=== PATIENT | male | born 1935 | race Caucasian/White ===

== ENCOUNTER 2022-03-07 07:27 | Observation (INO) ==
[2022-03-07] MEDS ORDERED: CeFAZolin Syr 2,000MG/20 ML 2,000 MG/20 ML SYRINGE IVPB ONE (07:53)
[2022-03-07] MEDS ORDERED: Ringers Solution, Lactated 1,000 ML IVC SCH (08:00)
[2022-03-07] MEDS ORDERED: *HR* Succinylcholine 200 MG/10 ML VIAL IVP ONE (08:01)
[2022-03-07] MEDS ORDERED: Lidocaine -MPF 2% 2 ML VIAL ONE (08:01)
[2022-03-07] MEDS ORDERED: Ondansetron 4 MG/2 ML VIAL ONE (08:01)
[2022-03-07] MEDS ORDERED: *HR* FentaNYL (PF) 100 MCG/2 ML VIAL ONE ×2 (08:01→10:17)
[2022-03-07] MEDS ORDERED: *HR* Propofol 200 MG/20 ML VIAL IVP ONE (08:01)
[2022-03-07] MEDS ORDERED: Ipratropium Neb 0.5 MG NEBULIZER IH PRN (08:10)
[2022-03-07] MEDS ORDERED: Albuterol 2.5 MG/3 ML NEBULIZER IH PRN (08:10)
[2022-03-07] MEDS ORDERED: Acetaminophen IV 1,000 MG/100 ML BAG IVPB PRN (08:10)
[2022-03-07] MEDS ORDERED: Naloxone 0.4 MG/ML INJ IVP PRN ×3 (08:10→16:11)
[2022-03-07] MEDS ORDERED: *HR* OxyCODONE Immed Rel 5 MG TABLET PO PRN ×3 (08:10→13:41)
[2022-03-07] MEDS ORDERED: *HR* HYDROmorphone PF 0.5 MG/0.5 ML SYRINGE IVP PRN (08:10)
[2022-03-07] MEDS ORDERED: *HR* FentaNYL (PF) 100 MCG/2 ML VIAL IVP PRN (08:10)
[2022-03-07] MEDS ORDERED: *HR* Meperidine 25 MG/ML SYRINGE IVP PRN (08:10)
[2022-03-07] MEDS ORDERED: flumazeniL 0.5 MG/5 ML VIAL IVP PRN (08:10)
[2022-03-07] MEDS ORDERED: Ondansetron 4 MG/2 ML VIAL IVP PRN ×2 (08:10→13:41)
[2022-03-07] MEDS ORDERED: Ropivacaine/PF 0.5% 30 ML VIAL ONE (09:00)
[2022-03-07] MEDS ORDERED: ROPIVACAINE/PF/NS 0.25% 1 EACH SYRINGE INTRAART ONE (09:01)
[2022-03-07] MEDS ORDERED: Tranexamic Acid 1,000 MG/10 ML VIAL ONE (09:22)
[2022-03-07] MEDS ORDERED: Vancomycin 1,000 MG VIAL ONE (09:25)
[2022-03-07] MEDS ORDERED: Albumin Human 5% 25.0 GM/500 ML IV.SOLN ONE (09:41)
[2022-03-07] MEDS ORDERED: TOTAL JOINT MIXTURE (100ML) INTRAART ONE (09:55)
[2022-03-07] MEDS ORDERED: Povidone-Iodine 45 ML, Sodium Chloride IRRigation 1,000 ML IR ONE (09:55)
[2022-03-07] MEDS ORDERED: Acetaminophen IV 1,000 MG/100 ML BAG IVPB ONE (10:20)
[2022-03-07] MEDS ORDERED: Sennosides 8.6 MG TABLET PO PRN (13:41)
[2022-03-07] MEDS ORDERED: MOM Conc 10 ML UD.LIQ PO PRN (13:41)
[2022-03-07] MEDS: Ascorbic Acid 500 MG TABLET PO SCH (16:37)
[2022-03-07 17:12] LABS: Basophils % 0.2 %; Eosinophils % 0.1 %; Hematocrit 38.3 % (37.5-50.1); Hemoglobin 12.2 g/dL (12.9-16.9); Immature Granulocytes % 0.4 % (0-4); Lymphocytes # 1.1 K/mcL (0.6-4.6); Lymphocytes % 8.7 %; Mean Corpuscular HGB Conc 31.9 g/dL (31.6-35.5); Mean Corpuscular Hemoglobin 30.2 pg (28.0-33.3); Mean Corpuscular Volume 94.8 fL (83.0-100.0); Mean Platelet Volume 9.4 fL (9.4-12.4); Monocytes # 0.2 K/mcL (0.0-1.3); Monocytes % 1.5 %; Neutrophils # 11.1 K/mcL (1.6-8.9); Platelet Count 195 K/mcL (140-400); Red Blood Count 4.04 M/mcL (4.19-5.50); Red Cell Distribution Width 13.1 % (11.5-14.5); Segmented Neutrophils % 89.1 %; White Blood Count 12.5 K/mcL (4.3-11.1)
[2022-03-07 17:18] LABS: BUN/Creatinine Ratio 25 (6-26); Blood Urea Nitrogen 28 mg/dL (8-23); Calcium 9.1 mg/dL (8.6-10.3); Carbon Dioxide 24 mEq/L (23-29); Chloride 105 mEq/L (98-107); Glucose 127 mg/dL (70-105); Magnesium 1.6 mg/dL (1.6-2.6); Osmolality,Calculated 291 (280-300); Potassium 4.6 mEq/L (3.5-5.1); Sodium 137 mEq/L (136-145); eGFR For African Americans > 60 (> 60); eGFR For Non-African Americans > 60 (> 60)
[2022-03-07 17:19] LABS: Troponin I < 0.03 ng/mL (< 0.04)
[2022-03-07 17:32] LABS: Thyroid Stimulating Hormone 1.863 mcIU/mL (0.340-5.600)
[2022-03-07 17:35] LABS: INR 1.1; Prothrombin Time 11.8 Seconds (9.4-12.1)
[2022-03-07] MEDS: CeFAZolin 2 GM/100 ML BAG IVPB SCH (17:39)
[2022-03-07] MEDS: Ringers Solution, Lactated 1,000 ML IVC SCH (21:23)
[2022-03-08] MEDS: CeFAZolin 2 GM/100 ML BAG IVPB SCH ×3 (01:10→19:22)
[2022-03-08 04:40] LABS: Basophils % 0.1 %; Hematocrit 37.3 % (37.5-50.1); Hemoglobin 12.4 g/dL (12.9-16.9); Immature Granulocytes % 0.5 % (0-4); Lymphocytes # 1.2 K/mcL (0.6-4.6); Lymphocytes % 9.1 %; Mean Corpuscular HGB Conc 33.2 g/dL (31.6-35.5); Mean Corpuscular Hemoglobin 31.2 pg (28.0-33.3); Mean Platelet Volume 9.8 fL (9.4-12.4); Monocytes # 0.8 K/mcL (0.0-1.3); Monocytes % 5.8 %; Platelet Count 220 K/mcL (140-400); Red Blood Count 3.97 M/mcL (4.19-5.50); Red Cell Distribution Width 13.1 % (11.5-14.5); Segmented Neutrophils % 84.5 %
[2022-03-08 04:47] LABS: Calcium 9.2 mg/dL (8.6-10.3); Potassium 4.7 mEq/L (3.5-5.1)
[2022-03-08] MEDS: Ascorbic Acid 500 MG TABLET PO SCH ×2 (09:47→17:09)
[2022-03-08] MEDS: Multivit/Ca/Min/Fe/FA 1 TAB TABLET PO SCH (09:49)
[2022-03-08] MEDS: Aspirin Enteric Coated 81 MG Tablet PO SCH ×2 (17:09→20:33)
[2022-03-09] MEDS: Ringers Solution, Lactated 1,000 ML IVC SCH ×4 (01:35→23:08)
[2022-03-09] MEDS: CeFAZolin 2 GM/100 ML BAG IVPB SCH (01:38)
[2022-03-09 07:42] LABS: Basophils # 0.1 K/mcL (0.0-0.2); Basophils % 0.4 %; Eosinophils # 0.2 K/mcL (0.0-0.6); Eosinophils % 1.8 %; Hematocrit 35.6 % (37.5-50.1); Hemoglobin 11.4 g/dL (12.9-16.9); Immature Granulocytes % 0.3 % (0-4); Lymphocytes # 2.8 K/mcL (0.6-4.6); Mean Corpuscular Hemoglobin 30.8 pg (28.0-33.3); Mean Corpuscular Volume 96.2 fL (83.0-100.0); Mean Platelet Volume 9.9 fL (9.4-12.4); Monocytes # 1.2 K/mcL (0.0-1.3); Monocytes % 10.3 %; Neutrophils # 7.7 K/mcL (1.6-8.9); Platelet Count 194 K/mcL (140-400); Red Cell Distribution Width 13.7 % (11.5-14.5); Segmented Neutrophils % 64.2 %
[2022-03-09 08:10] LABS: Calcium 9.1 mg/dL (8.6-10.3); Potassium 4.3 mEq/L (3.5-5.1)
[2022-03-09] MEDS ORDERED: CeFAZolin 2 GM/100 ML BAG IVPB SCH (10:00)
[2022-03-09] MEDS: Aspirin Enteric Coated 81 MG Tablet PO SCH ×2 (10:03→20:26)
[2022-03-09] MEDS: Multivit/Ca/Min/Fe/FA 1 TAB TABLET PO SCH (10:04)
[2022-03-09] MEDS: Metoprolol XL (24 HR) Succ 25 MG TAB.ER.24H PO SCH (10:04)
[2022-03-09] MEDS: Ascorbic Acid 500 MG TABLET PO SCH ×2 (10:09→18:17)
[2022-03-09] MEDS: CeFAZolin 2,000 MG/120 ML BAG IVPB SCH ×2 (14:58→23:04)
[2022-03-09 17:17] LABS: Bilirubin,Urine Negative (Negative); Blood,Urine Negative (Negative); Clarity,Urine Turbid (Clear); Color,Urine Yellow (Yellow); Glucose,Urine (UA) Normal (Normal); Ketones,Urine Trace mg/dL (Negative); Leukocyte Esterase,Urine Large (Negative); Mucus,Urine Few per lpf (None-Few); Nitrite,Urine Negative (Negative); PH,Urine 5.5 pH Units (5.0-8.0); Protein,Urine Trace mg/dL (Neg-Trace); RBC,Urine 0-3 per hpf (0-3); Specific Gravity,Urine 1.024 (1.010-1.025); Squamous Epithelial Cell,Urine Few per hpf (None-Few); Urobilinogen,Urine Normal (Normal); WBC,Urine TNTC per hpf (0-3)
[2022-03-10 06:13] LABS: Basophils # 0.1 K/mcL (0.0-0.2); Basophils % 0.4 %; Eosinophils # 0.5 K/mcL (0.0-0.6); Eosinophils % 4.3 %; Hematocrit 33.7 % (37.5-50.1); Hemoglobin 10.9 g/dL (12.9-16.9); Immature Granulocytes % 0.4 % (0-4); Lymphocytes # 2.6 K/mcL (0.6-4.6); Lymphocytes % 21.6 %; Mean Corpuscular HGB Conc 32.3 g/dL (31.6-35.5); Mean Corpuscular Hemoglobin 31.1 pg (28.0-33.3); Mean Corpuscular Volume 96.3 fL (83.0-100.0); Mean Platelet Volume 9.9 fL (9.4-12.4); Monocytes # 1.4 K/mcL (0.0-1.3); Monocytes % 11.3 %; Neutrophils # 7.5 K/mcL (1.6-8.9); Platelet Count 174 K/mcL (140-400); Red Cell Distribution Width 13.9 % (11.5-14.5)
[2022-03-10] MEDS: CeFAZolin 2,000 MG/120 ML BAG IVPB SCH (06:14)
[2022-03-10 06:55] LABS: BUN/Creatinine Ratio 21 (6-26); Blood Urea Nitrogen 27 mg/dL (8-23); Calcium 8.8 mg/dL (8.6-10.3); Carbon Dioxide 26 mEq/L (23-29); Chloride 106 mEq/L (98-107); Glucose 122 mg/dL (70-105); Magnesium 1.9 mg/dL (1.6-2.6); Osmolality,Calculated 296 (280-300); Potassium 4.4 mEq/L (3.5-5.1); Sodium 140 mEq/L (136-145); eGFR For African Americans > 60 (> 60); eGFR For Non-African Americans 54 (> 60)
[2022-03-10] MEDS ORDERED: Nitrofurantoin (BID) 100 MG CAPSULE PO SCH (08:00)
[2022-03-10] MEDS: Metoprolol XL (24 HR) Succ 25 MG TAB.ER.24H PO SCH (08:48)
[2022-03-10] MEDS: Aspirin Enteric Coated 81 MG Tablet PO SCH (08:48)
[2022-03-10] MEDS: Ascorbic Acid 500 MG TABLET PO SCH ×2 (08:48→16:40)
[2022-03-10] MEDS: Multivit/Ca/Min/Fe/FA 1 TAB TABLET PO SCH (08:48)
[2022-03-10] MEDS ORDERED: cephALEXin 500 MG CAPSULE PO SCH (15:00)
[2022-03-10 15:52] VITALS: BP 141/58; PULSE 77; TEMP 97.6; O2SAT 99
[2022-03-10 15:58] LABS: Adenovirus Not Detected (Not Detect); Bordetella Pertussis Not Detected (Not Detect); Chlamydophila pneumoniae Not Detected (Not Detect); Coronavirus 229E Not Detected (Not Detect); Coronavirus HKU1 Not Detected (Not Detect); Coronavirus NL63 Not Detected (Not Detect); Coronavirus OC43 Not Detected (Not Detect); Human Metapneumovirus Not Detected (Not Detect); Human Rhinovirus/Enterovirus Not Detected (Not Detect); Influenza A Subtype 2009 H1 Not Detected (Not Detect); Influenza B Not Detected (Not Detect); Mycoplasma pneumoniae Not Detected (Not Detect); Parainfluenza Virus 1 Not Detected (Not Detect); Parainfluenza Virus 2 Not Detected (Not Detect); Parainfluenza Virus 3 Not Detected (Not Detect); Parainfluenza Virus 4 Not Detected (Not Detect); Respiratory Syncytial Virus Not Detected (Not Detect); SARS-CoV-2 Not Detected (Not Detect)
== END 2022-03-10 17:22 ==
LOC: SDCAOSI 07:27 → 4WAOSI 07:27 → SUATTDRO 16:11
PROVIDERS: ADMIT Orthopaedic Surgery; ATTEND Orthopaedic Surgery